=== PATIENT | male | born 1980 | race Caucasian/White ===

== ENCOUNTER 2019-10-03 12:45 | Emergency (ER) | payer OTHER ==
[~2019-10-03] VITALS: Ht 175.3 cm; Wt 97.7 kg
[2019-10-03] MEDS ORDERED: BOOSTRIX/ADACEL VACCINE (DIPHTH/PERTUSS/ACELL/TETANUS) 0.5ML SYR IM ONE (13:00)
[2019-10-03] MEDS ORDERED: BACL10TA2 PO (13:02)
[2019-10-03] MEDS ORDERED: ZOLO100T PO (13:02)
[2019-10-03] MEDS ORDERED: LORA1TAB4 PO (13:02)
[2019-10-03] MEDS ORDERED: DICL25TA PO (13:02)
[2019-10-03] MEDS ORDERED: GABA-843 PO (13:02)
[2019-10-03] MEDS ORDERED: LIDOCAINE 2% MDV 20ML VIAL SC ONE (13:30)
[2019-10-03 14:50] VITALS: BP 136/74
== END 2019-10-03 15:00 | disposition home or self-care (01) ==
LOC: M ED 12:45
DX: S61.512A Laceration without foreign body of left wrist, initial encounter (principal); W20.8XXA Other cause of strike by thrown, projected or falling object, initial encounter; Y99.8 Other external cause status; F17.210 Nicotine dependence, cigarettes, uncomplicated